=== PATIENT | male | born 1975 | race Caucasian/White ===

== ENCOUNTER 2020-10-21 14:02 | Emergency (ER) | payer OTHER ==
[~2020-10-21] VITALS: Ht 182.9 cm; Wt 113.6 kg
[2020-10-21 15:00] LABS: BASO # 0.1 10^3/uL (0.0-0.2); BASO % 0.4 % (0.0-1.0); EOS # 0.2 10^3/uL (0.0-0.5); EOS % 1.3 % (0.0-3.0); HEMATOCRIT 43.9 % (42.0-52.0); HEMOGLOBIN 14.7 g/dl (13.5-17.5); LYMPH % 8.2 % (24.0-44.0); MEAN CORPUSCULAR HEMOGLOBIN 29.9 pg (27.0-33.0); MEAN CORPUSCULAR HGB CONC 33.5 g/dl (32.0-36.5); MEAN CORPUSCULAR VOLUME 89.4 fl (80.0-96.0); MONO # 1.2 10^3/uL (0.0-0.8); MONO % 9.9 % (2.0-8.0); NEUTROPHILS # 9.4 10^3/uL (1.5-8.5); NEUTROPHILS % 79.8 % (36.0-66.0); PLATELET COUNT, AUTOMATED 212 10^3/uL (150-450); RED BLOOD COUNT 4.91 10^6/uL (4.30-6.10); WHITE BLOOD COUNT 11.8 10^3/uL (4.0-10.0)
[2020-10-21 15:25] LABS: ALBUMIN 4.3 GM/DL (3.2-5.2); BILIRUBIN,DIRECT 0.3 MG/DL (0.0-0.2); BILIRUBIN,TOTAL 1.1 MG/DL (0.2-1.0); TOTAL PROTEIN 7.6 GM/DL (6.4-8.2)
[2020-10-21] MEDS ORDERED: NS 1,000 ML IV ONE (15:25)
--- NOTE | 2020-10-21 15:52 | REP ---
INDICATION: right flank pain COMPARISON: None TECHNIQUE: Axial noncontrast images from the lung bases to the pubic symphysis with coronal and sagittal reformations. This CT examination was performed using the following dose reduction techniques: Automated exposure control, adjustment of mA and/or kv according to the patient's size, and use of iterative reconstruction technique. FINDINGS: Acute right-sided obstructive uropathy with hydroureteronephrosis, perinephric and periureteral stranding, and mildly edematous enlargement to the right kidney with a 6 mm obstructing calculus in the proximal ureter just beyond the ureteropelvic junction. Small 1-2 mm nonobstructing right renal calculi are suggested along with a 2.7 cm hypodensity likely representing cyst. Left kidney/ureter appears normal. Hepatosteatosis. Spleen, pancreas, gallbladder, and bilateral adrenal glands are normal. The enteric system is without obstruction or acute inflammatory process. Normal terminal ileum and appendix are identified in the right lower quadrant. Pelvis demonstrates normal bladder and age-appropriate prostate/seminal vesicles. No ascites. No free air. No adenopathy. Abdominal aorta without aneurysm. Musculoskeletal structures are grossly normal; a small hemangioma is suggested in the T7 vertebral body. Chronic pneumatocele in the lingula. IMPRESSION: 1. Acute right-sided obstructive uropathy with a 6 mm calculus in the proximal right ureter. Few small nonobstructing right renal calculi. 2. Hepatosteatosis. <Electronically signed by Ritchie Diaz > 10/21/20 [id number]
[2020-10-21] MEDS ORDERED: MORPHINE 4 MG/ML 1ML VIAL/SYRINGE (J2270) IV ONE (16:20)
[2020-10-21] MEDS ORDERED: FLOM0.4C39 PO (18:25)
[2020-10-21] MEDS ORDERED: HYDR-4571 PO (18:25)
[2020-10-21 18:46] VITALS: BP 110/57
== END 2020-10-21 18:49 | disposition home or self-care (01) ==
LOC: M ED 14:02
DX: N13.2 Hydronephrosis with renal and ureteral calculous obstruction (principal); K76.0 Fatty (change of) liver, not elsewhere classified; R11.2 Nausea with vomiting, unspecified; Z88.0 Allergy status to penicillin
CPT/HCPCS: 74176; 80047; 80076; 81001; 83690; 85025; 96361; 96374; 99284; J2270